=== PATIENT | female | born 1950 | race Asian ===

== ENCOUNTER 2019-09-18 15:56 | Emergency (ER) | payer MEDICAID ==
[~2019-09-18] VITALS: Ht 165.1 cm; Wt 67.3 kg
[2019-09-18] MEDS ORDERED: ACETAMINOPHEN 325 MG TABLET PO ONE (18:00)
[2019-09-18 21:54] VITALS: BP 155/87
== END 2019-09-18 21:57 | disposition home or self-care (01) ==
LOC: EMS 15:58
DX: S92.041A Displaced other fracture of tuberosity of right calcaneus, initial encounter for closed fracture (principal); I10 Essential (primary) hypertension; W17.89XA Other fall from one level to another, initial encounter; Y93.89 Activity, other specified; Y92.89 Other specified places as the place of occurrence of the external cause; Y99.8 Other external cause status
CPT/HCPCS: 29515; 73700

== ENCOUNTER → 2019-09-18 | Outpatient (CLI) | payer MEDICAID | END | disposition home or self-care (01) | LOC: PUC 13:18 | DX: S92.001A Unspecified fracture of right calcaneus, initial encounter for closed fracture (principal); X58.XXXA Exposure to other specified factors, initial encounter; Y93.89 Activity, other specified; Y92.89 Other specified places as the place of occurrence of the external cause; Y99.8 Other external cause status ==